=== PATIENT | female | born 1945 | race Caucasian/White ===

== ENCOUNTER 2017-08-07 14:37 | Inpatient (IN) | payer MEDICARE, BC ==
[~2017-08-07 14:37] MED LIST: CLINDAMYCIN 900 MG/50 ML D5W IVPB IVPB
[2017-08-07] MEDS ORDERED: MINERAL OIL LIGHT 10 ML VIAL (16:17)
[2017-08-07] MEDS ORDERED: FENTAnyl 50 MCG/ML VIAL IV ×3 (16:30)
[2017-08-07] MEDS ORDERED: METOCLOPRAMIDE 10 MG INJ IV (16:30)
[2017-08-07] MEDS ORDERED: MIDAZOLAM 1 MG/ML 2 ML INJ IV (16:30)
[2017-08-07] MEDS ORDERED: OXYCODONE/ACETAMINOPHEN (5/325) TAB PO ×2 (16:30)
[2017-08-07] MEDS ORDERED: hydrALAzine 20 MG INJ IV (16:30)
[2017-08-07] MEDS ORDERED: ONDANSETRON 4 MG INJ IV ×2 (16:30→19:30)
[2017-08-07] MEDS ORDERED: HYDROmorphONE (0.2 MG/ML) 10ML SYG IV ×3 (16:30)
[2017-08-07] MEDS ORDERED: LABETALOL HCL 20MG INJ IV (16:30)
[2017-08-07] MEDS ORDERED: MEPERIDINE 25 MG INJ IV (16:30)
[2017-08-07] MEDS ORDERED: EPHEDrine SULFATE 50 MG/5 ML SYG IV (16:30)
[2017-08-07] MEDS ORDERED: DIPHENHYDRAMINE 50 MG INJ IV (16:30)
[2017-08-07] MEDS ORDERED: PROPOFOL 20 ML (16:41)
[2017-08-07] MEDS ORDERED: LIDOCAINE 2% (SDV) 5 ML INJ (16:41)
[2017-08-07] MEDS ORDERED: ROPIVACAINE 0.5 % 30 ML VIAL (16:49)
[2017-08-07] MEDS: VANCOMYCIN 1 GM INJ (17:27)
[2017-08-07] MEDS ORDERED: ONDANSETRON 4 MG INJ (17:42)
[2017-08-07] MEDS ORDERED: METOCLOPRAMIDE 10 MG INJ (17:43)
[2017-08-07] MEDS ORDERED: HYDROCODONE/APAP (5/325) TAB PO (19:30)
[2017-08-07] MEDS ORDERED: ZOLPIDEM 5 MG TAB PO (19:30)
[2017-08-07] MEDS ORDERED: morphine 2 MG INJ IV (19:30)
[2017-08-07] MEDS: DOCUSATE SODIUM 100 MG CAP PO ×2 (21:00→21:51)
[2017-08-07] MEDS: ZINC SULFATE 220 MG CAP PO (21:51)
[2017-08-07] MEDS: CLINDAMYCIN 600 MG/D5W (PMX) 50 ML IVPB (23:57)
[2017-08-08] MEDS: CLINDAMYCIN 600 MG/D5W (PMX) 50 ML IVPB ×4 (05:39→23:22)
[2017-08-08] MEDS ORDERED: CLINDAMYCIN 900 MG/D5W (PMX) 50 ML IVPB (07:00)
[2017-08-08] MEDS: ASCORBIC ACID 500 MG TAB PO (08:36)
[2017-08-08] MEDS: DOCUSATE SODIUM 100 MG CAP PO ×2 (08:38→20:21)
[2017-08-08 12:22] LABS: CREATININE 0.84 mg/dl (0.44-1.00)
[2017-08-08] MEDS: BACITRACIN 0.9 GM OINT TOP (14:00)
[2017-08-08] MEDS: HYDROCODONE/APAP (5/325) TAB PO (23:20)
[2017-08-09] MEDS: PANTOPRAZOLE (EC) 40 MG TAB PO (05:39)
[2017-08-09] MEDS: CLINDAMYCIN 600 MG/D5W (PMX) 50 ML IVPB ×2 (05:39→12:00)
[2017-08-09 06:44] LABS: ADD MAN DIFF? NO
[2017-08-09 06:50] LABS: WHITE BLOOD COUNT 8.8 10^3/ul (4.8-10.8)
[2017-08-09 06:50] LABS: BASOPHILS % 0.3 % (0.0-2.0); EOSINOPHILS # 0.1 10^3/ul (0.0-0.5); EOSINOPHILS % 1.1 % (0.0-7.0); HEMATOCRIT 30.1 % (37.0-47.0); HEMOGLOBIN 10.3 g/dl (12.0-16.0); LYMPHOCYTES # 1.4 10^3/ul (0.8-2.9); LYMPHOCYTES % 16.3 % (15.0-51.0); MEAN CORPUSCULAR HEMOGLOBIN 30.1 pg (29.0-33.0); MEAN CORPUSCULAR HGB CONC 34.2 g/dl (32.0-37.0); MEAN PLATELET VOLUME 9.7 fl (7.4-10.4); MONOCYTES % 11.5 % (0.0-11.0); NEUTROPHIL # 6.2 10^3/ul (1.6-7.5); NEUTROPHILS % 70.5 % (39.0-77.0); PLATELET COUNT 228 10^3/UL (140-415); RED BLOOD COUNT 3.42 10^6/ul (4.20-5.40); RED CELL DISTRIBUTION WIDTH 14.9 % (11.5-14.5)
[2017-08-09 07:08] LABS: HEMOGLOBIN A1C 5.6 % (0-5.9)
[2017-08-09 07:09] LABS: ALANINE AMINOTRANSFERASE 35 IU/L (13-69); ALBUMIN 3.3 g/dl (3.3-4.9); ALBUMIN/GLOBULIN RATIO 1.06; ALKALINE PHOSPHATASE 94 IU/L (42-121); ANION GAP 12 (8-16); ASPARTATE AMINO TRANSFERASE 23 IU/L (15-46); BILIRUBIN,INDIRECT 0.5 mg/dl (0-1.1); BILIRUBIN,TOTAL 0.5 mg/dl (0.2-1.3); BLOOD UREA NITROGEN 12 mg/dl (7-20); CALCIUM 8.4 mg/dl (8.4-10.2); CARBON DIOXIDE 23 mmol/L (21-31); CHLORIDE 104 mmol/L (97-110); CREATININE 0.79 mg/dl (0.44-1.00); GLUCOSE 103 mg/dl (70-220); POTASSIUM 3.6 mmol/L (3.5-5.1); SODIUM 135 mmol/L (135-144); TOTAL PROTEIN 6.4 g/dl (6.1-8.1)
[2017-08-09 07:36] LABS: PHOSPHORUS 3.6 mg/dl (2.5-4.9)
[2017-08-09 07:36] LABS: MAGNESIUM 1.9 mg/dl (1.7-2.5)
[2017-08-09] MEDS: MULTIVITAMINS THERAPEUTIC TAB PO (08:55)
[2017-08-09] MEDS: ZINC SULFATE 220 MG CAP PO (08:55)
[2017-08-09] MEDS: BACITRACIN 0.5%/ZINC 28.35 GM OINT TOP (08:55)
[2017-08-09] MEDS: DOCUSATE SODIUM 100 MG CAP PO ×3 (08:58→23:15)
[2017-08-09] MEDS: INFLUENZA VIRUS VACCINE 0.5 ML SYG IM* (08:58)
[2017-08-09] MEDS: ENOXAPARIN 40 MG/0.4 ML SYG SC (08:59)
[2017-08-09] MEDS: ASCORBIC ACID 500 MG TAB PO ×2 (09:00→10:34)
[2017-08-09] MEDS: CEFEPIME 1GM/50 ML (PMX) 50 ML IVPB ×3 (14:58→23:15)
[2017-08-09] MEDS: HYDROCODONE/APAP (5/325) TAB PO (23:15)
[2017-08-10] MEDS: PANTOPRAZOLE (EC) 40 MG TAB PO (06:01)
[2017-08-10] MEDS: MULTIVITAMINS THERAPEUTIC TAB PO (08:38)
[2017-08-10] MEDS: ASCORBIC ACID 500 MG TAB PO (08:38)
[2017-08-10] MEDS: ZINC SULFATE 220 MG CAP PO (08:39)
[2017-08-10] MEDS: CEFEPIME 1GM/50 ML (PMX) 50 ML IVPB (08:39)
[2017-08-10] MEDS: DOCUSATE SODIUM 100 MG CAP PO ×4 (08:39→23:50)
[2017-08-10] MEDS: BACITRACIN 0.5%/ZINC 28.35 GM OINT TOP (11:05)
[2017-08-10] MEDS: LEVOFLOXACIN 500 MG TAB PO (21:04)
[2017-08-10] MEDS: HYDROCODONE/APAP (5/325) TAB PO (23:50)
[2017-08-11] MEDS: LEVOFLOXACIN 500 MG TAB PO (06:11)
[2017-08-11] MEDS: PANTOPRAZOLE (EC) 40 MG TAB PO (06:11)
[2017-08-11] MEDS: DOCUSATE SODIUM 100 MG CAP PO (09:00)
[2017-08-11] MEDS: ASCORBIC ACID 500 MG TAB PO (09:18)
[2017-08-11] MEDS: MULTIVITAMINS THERAPEUTIC TAB PO (09:18)
[2017-08-11] MEDS: ZINC SULFATE 220 MG CAP PO (09:18)
[2017-08-11] MEDS: BACITRACIN 0.5%/ZINC 28.35 GM OINT TOP (09:19)
[2017-08-11] MEDS: CEPHALEXIN 500 MG CAP PO (15:30)
== END 2017-08-11 16:40 | disposition home health service (06) | DRG 574 ==
LOC: MS2 08-10 21:25 → SDS 14:37 → MS2 19:17
PROVIDERS: Podiatrist Foot & Ankle Surgery
PROC: 0KBT0ZZ Excision of Left Lower Leg Muscle, Open Approach (ICD-10-PCS; principal; 2017-08-07 16:30)
PROC: 0HRLX74 Replacement of Left Lower Leg Skin with Autologous Tissue Substitute, Partial Thickness, External Approach (ICD-10-PCS; 2017-08-07 16:30)
PROC: 0KXT0ZZ Transfer Left Lower Leg Muscle, Open Approach (ICD-10-PCS; 2017-08-07 16:30)
DX: L97.328 Non-pressure chronic ulcer of left ankle with other specified severity (principal); L03.116 Cellulitis of left lower limb; B96.5 Pseudomonas (aeruginosa) (mallei) (pseudomallei) as the cause of diseases classified elsewhere; I10 Essential (primary) hypertension; L59.8 Other specified disorders of the skin and subcutaneous tissue related to radiation; Z85.828 Personal history of other malignant neoplasm of skin; B95.61 Methicillin susceptible Staphylococcus aureus infection as the cause of diseases classified elsewhere
CPT/HCPCS: 80053; 82565; 83036; 83735; 84100; 85025; 87070; 88304; 90686; 97116; 97163; 97530; 97542